=== PATIENT | male | born 1960 | race Asian ===

== ENCOUNTER 2021-10-22 11:24 | Observation (INO) | payer OTHER ==
[2021-10-22 13:48] LABS: BASO % 0.9 % (0-2.0); HEMATOCRIT 26.8 % (35.4-49); HEMOGLOBIN 8.7 GM/dL (11.7-16.9); LYMPH % 14.7 % (8-40); MCH 30.5 pg (25.7-33.7); MCHC 32.6 g/dl (32.0-35.9); MEAN CELL VOLUME 93.7 fl (80-96); MEAN PLT VOLUME 7.4 fl (7.5-11.1); MONO % 14.6 % (3.8-10.2); NEUT % 65.8 % (42.8-82.8); PLATELET COUNT 286 10^3/uL (134-434); RBC 2.86 M/mm3 (4.00-5.60); RDW 14.2 % (11.9-15.9)
[2021-10-22 14:04] LABS: CHLORIDE 100 mmol/L (98-107); SODIUM 137 mmol/L (136-145)
[2021-10-22 14:05] LABS: INR 1.1 (0.83-1.09); PROTHROMBIN TIME (PATIENT) 12.7 SEC (9.7-13.0)
[2021-10-22 14:06] LABS: ANION GAP 9 MMOL/L (8-16); CALCIUM 8.9 mg/dL (8.5-10.1); CO2 28 mmol/L (21-32); GLUCOSE,RANDOM 129 mg/dL (74-106)
[2021-10-22 14:08] LABS: ALBUMIN 2.4 g/dl (3.4-5.0); BLOOD UREA NITROGEN 33.6 mg/dL (7-18); MAGNESIUM 2.8 mg/dL (1.8-2.4)
[2021-10-22 14:10] LABS: SGOT/AST 46 U/L (15-37); SGPT/ALT 13 U/L (13-61)
[2021-10-22 14:11] LABS: ALK PHOS 124 U/L (45-117); BILIRUBIN,TOTAL 0.7 mg/dL (0.2-1); TOT PROT 6.5 g/dl (6.4-8.2)
[2021-10-22 14:17] LABS: CREATININE 8.6 mg/dL (0.55-1.3)
[2021-10-22] MEDS ORDERED: SODIUM CHLORIDE 250 ML IV PRN (16:01)
[2021-10-22 23:59] VITALS: BMI 20.6
[2021-10-23] MEDS: LOSARTAN POTASSIUM 50 MG TABLET PO SCH ×2 (09:04→09:10)
[2021-10-23] MEDS: SEVELAMER CARBONATE 800 MG TAB (FP) PO SCH ×4 (09:04→18:21)
[2021-10-23] MEDS: ASPIRIN COATED 81 MG TABLET.EC PO SCH (09:04)
[2021-10-24] MEDS: SEVELAMER CARBONATE 800 MG TAB (FP) PO SCH ×3 (09:18→18:25)
[2021-10-24] MEDS: ASPIRIN COATED 81 MG TABLET.EC PO SCH (09:19)
[2021-10-24] MEDS: LOSARTAN POTASSIUM 50 MG TABLET PO SCH (09:19)
[2021-10-24] MEDS ORDERED: SODIUM CHLORIDE 250 ML IV PRN (16:34)
[2021-10-24] MEDS: FAMOTIDINE 20 MG TABLET PO SCH (18:25)
[2021-10-24 21:04] LABS: BASO % 1.1 % (0-2.0); EOS % 4.4 % (0-4.5); HEMATOCRIT 29.7 % (35.4-49); HEMOGLOBIN 9.7 GM/dL (11.7-16.9); LYMPH % 19.3 % (8-40); MCH 30.4 pg (25.7-33.7); MCHC 32.7 g/dl (32.0-35.9); MEAN CELL VOLUME 93.1 fl (80-96); MEAN PLT VOLUME 7.3 fl (7.5-11.1); MONO % 11.3 % (3.8-10.2); NEUT % 63.9 % (42.8-82.8); PLATELET COUNT 356 10^3/uL (134-434); RBC 3.19 M/mm3 (4.00-5.60); RDW 14.6 % (11.9-15.9); WHITE BLOOD COUNT 8.4 K/mm3 (4.0-10.0)
[2021-10-24 21:18] LABS: ACTIVATED PTT 33.8 SECONDS (25.2-36.5); INR 1.13 (0.83-1.09)
[2021-10-25] MEDS: ASPIRIN COATED 81 MG TABLET.EC PO SCH (09:38)
[2021-10-25] MEDS: FAMOTIDINE 20 MG TABLET PO SCH (09:38)
[2021-10-25] MEDS: SEVELAMER CARBONATE 800 MG TAB (FP) PO SCH ×3 (09:38→18:15)
[2021-10-25 10:32] LABS: HEMATOCRIT 28.1 % (35.4-49); HEMOGLOBIN 9.1 GM/dL (11.7-16.9); MCH 30.2 pg (25.7-33.7); MCHC 32.5 g/dl (32.0-35.9); MEAN CELL VOLUME 92.9 fl (80-96); MEAN PLT VOLUME 7.4 fl (7.5-11.1); PLATELET COUNT 354 10^3/uL (134-434); RBC 3.02 M/mm3 (4.00-5.60); RDW 14.6 % (11.9-15.9)
[2021-10-25 10:52] LABS: CHLORIDE 97 mmol/L (98-107); SODIUM 137 mmol/L (136-145)
[2021-10-25 10:54] LABS: ALBUMIN 2.5 g/dl (3.4-5.0); ANION GAP 13 MMOL/L (8-16); BLOOD UREA NITROGEN 57.5 mg/dL (7-18); CALCIUM 8.7 mg/dL (8.5-10.1); CO2 27 mmol/L (21-32); GLUCOSE,RANDOM 168 mg/dL (74-106)
[2021-10-25 10:57] LABS: SGOT/AST 6 U/L (15-37); SGPT/ALT 11 U/L (13-61)
[2021-10-25 10:58] LABS: BILIRUBIN,TOTAL 0.5 mg/dL (0.2-1); TOT PROT 6.2 g/dl (6.4-8.2)
[2021-10-25 10:59] LABS: ALK PHOS 128 U/L (45-117)
[2021-10-25 11:10] LABS: CREATININE 10.1 mg/dL (0.55-1.3)
[2021-10-25] MEDS: LOSARTAN POTASSIUM 50 MG TABLET PO SCH (14:52)
[2021-10-26 08:19] LABS: BASO % 1.2 % (0-2.0); EOS % 3.8 % (0-4.5); HEMATOCRIT 26.8 % (35.4-49); HEMOGLOBIN 8.9 GM/dL (11.7-16.9); MCH 30.7 pg (25.7-33.7); MCHC 33.2 g/dl (32.0-35.9); MEAN CELL VOLUME 92.5 fl (80-96); MEAN PLT VOLUME 6.9 fl (7.5-11.1); MONO % 12.6 % (3.8-10.2); NEUT % 69.4 % (42.8-82.8); PLATELET COUNT 286 10^3/uL (134-434); RDW 14.6 % (11.9-15.9); WHITE BLOOD COUNT 5.9 K/mm3 (4.0-10.0)
[2021-10-26] MEDS: SEVELAMER CARBONATE 800 MG TAB (FP) PO SCH ×2 (08:29→12:20)
[2021-10-26 08:42] LABS: CALCIUM 8.2 mg/dL (8.5-10.1)
[2021-10-26 08:43] LABS: MAGNESIUM 1.9 mg/dL (1.8-2.4)
[2021-10-26 08:46] LABS: CREATININE 6.3 mg/dL (0.55-1.3); PHOSPHOROUS 3.2 mg/dL (2.5-4.9)
[2021-10-26 08:55] LABS: BLOOD UREA NITROGEN 28.4 mg/dL (7-18)
[2021-10-26] MEDS: FAMOTIDINE 20 MG TABLET PO SCH (09:55)
[2021-10-26] MEDS: ASPIRIN COATED 81 MG TABLET.EC PO SCH (09:55)
[2021-10-26] MEDS ORDERED: METOCLOPRAMIDE HCL 10 MG TABLET (FP) PO SCH (10:00)
[2021-10-26] MEDS: LOSARTAN POTASSIUM 50 MG TABLET PO SCH (10:05)
[2021-10-26 16:07] VITALS: BP 126/77; PULSE 101; TEMP 98.3
== END 2021-10-26 14:33 | disposition home or self-care (01) ==
LOC: JER 11:24 → UNDOADMOB 14:18 → INTOOBSV 14:18 → JERBED 14:18 → J5S 21:08
PROVIDERS: ADMIT Internal Medicine; ATTEND Internal Medicine
DX: I12.0 Hypertensive chronic kidney disease with stage 5 chronic kidney disease or end stage renal disease (principal); N18.6 End stage renal disease; Z99.2 Dependence on renal dialysis; E78.5 Hyperlipidemia, unspecified; Q61.3 Polycystic kidney, unspecified; I48.91 Unspecified atrial fibrillation; E21.3 Hyperparathyroidism, unspecified
CPT/HCPCS: 36415; 74176-TC; 74178-TC; 76775-TC; 80048; 80053; 82272; 83735; 84100; 85025; 85027; 85610; 85730; 86803; 86850; 86900; 86901; 87340; 99285-25; C9803-CS; G0378; Q9967; U0003; U0005

== ENCOUNTER 2022-02-24 20:49 | Inpatient (IN) | payer OTHER ==
[2022-02-24] MEDS ORDERED: DEXAMETHASONE SOD PHOSPHATE 10 MG/1 ML VIAL IVPUSH ONE (22:26)
[2022-02-24] MEDS ORDERED: DEXAMETHASONE SOD PHOSPHATE 10 MG/1 ML VIAL ONE (22:40)
[2022-02-24 23:04] LABS: INR 1.12 (0.83-1.09); PROTHROMBIN TIME (PATIENT) 12.9 SEC (9.7-13.0)
[2022-02-24 23:13] LABS: HEMATOCRIT 45.2 % (35.4-49); HEMOGLOBIN 14.5 GM/dL (11.7-16.9); MCH 30.1 pg (25.7-33.7); MCHC 32.1 g/dl (32.0-35.9); MEAN CELL VOLUME 93.7 fl (80-96); MEAN PLT VOLUME 8.1 fl (7.5-11.1); PLATELET COUNT 119 10^3/uL (134-434); RBC 4.82 M/mm3 (4.00-5.60); RDW 16.3 % (11.9-15.9); WHITE BLOOD COUNT 4.4 K/mm3 (4.0-10.0)
[2022-02-24 23:36] LABS: CHLORIDE 96 mmol/L (98-107); SODIUM 135 mmol/L (136-145)
[2022-02-24 23:38] LABS: CALCIUM 9.2 mg/dL (8.5-10.1)
[2022-02-24 23:39] LABS: ALBUMIN 3.1 g/dl (3.4-5.0); ANION GAP 12 MMOL/L (8-16); BLOOD UREA NITROGEN 52.1 mg/dL (7-18); CO2 27 mmol/L (21-32); GLUCOSE,RANDOM 112 mg/dL (74-106); MAGNESIUM 2.6 mg/dL (1.8-2.4)
[2022-02-24 23:42] LABS: PHOSPHOROUS 4.3 mg/dL (2.5-4.9); SGOT/AST 34 U/L (15-37); SGPT/ALT 29 U/L (13-61)
[2022-02-24 23:43] LABS: TOT PROT 6.6 g/dl (6.4-8.2)
[2022-02-24 23:44] LABS: BILIRUBIN,TOTAL 0.7 mg/dL (0.2-1)
[2022-02-24 23:45] LABS: ALK PHOS 111 U/L (45-117)
[2022-02-24 23:49] LABS: CREATININE 8.9 mg/dL (0.55-1.3)
[2022-02-24 23:59] LABS: ANISOCYTOSIS 1+; MACROCYTOSIS 0; OVALOCYTE 1+; PLATELET ESTIMATE DECREASED
[2022-02-25] MEDS ORDERED: SEVELAMER CARBONATE 800 MG TAB (FP) PO SCH (06:00)
[2022-02-25 07:01] LABS: BASO % 0.5 % (0-2.0); EOS % 2.2 % (0-4.5); HEMATOCRIT 39.3 % (35.4-49); HEMOGLOBIN 12.7 GM/dL (11.7-16.9); LYMPH % 17.4 % (8-40); MCHC 32.4 g/dl (32.0-35.9); MEAN CELL VOLUME 92.7 fl (80-96); NEUT % 75.9 % (42.8-82.8); PLATELET COUNT 115 10^3/uL (134-434); RBC 4.24 M/mm3 (4.00-5.60); RDW 16.5 % (11.9-15.9)
[2022-02-25] MEDS ORDERED: SODIUM CHLORIDE 250 ML IV PRN (07:11)
[2022-02-25 07:18] LABS: CHLORIDE 97 mmol/L (98-107); SODIUM 133 mmol/L (136-145)
[2022-02-25 07:21] LABS: CALCIUM 8.8 mg/dL (8.5-10.1); CO2 27 mmol/L (21-32)
[2022-02-25 07:28] LABS: ALK PHOS 106 U/L (45-117); ANION GAP 10 MMOL/L (8-16); BILIRUBIN,TOTAL 0.6 mg/dL (0.2-1); BLOOD UREA NITROGEN 63.2 mg/dL (7-18); CREATININE 9.5 mg/dL (0.55-1.3); GLUCOSE,RANDOM 152 mg/dL (74-106); SGOT/AST 14 U/L (15-37); SGPT/ALT 26 U/L (13-61); TOT PROT 6.2 g/dl (6.4-8.2)
[2022-02-25] MEDS: SEVELAMER CARBONATE 800 MG TAB (FP) PO SCH ×3 (09:50→17:29)
[2022-02-25] MEDS: LOSARTAN POTASSIUM 50 MG TABLET PO SCH (10:48)
[2022-02-25] MEDS: predniSONE 20 MG TABLET (UD) PO SCH (21:12)
[2022-02-25] MEDS: TRIAMCINOLONE ACET 0.1% CREAM 15 GM TUBE TP SCH (22:00)
[2022-02-26] MEDS: SEVELAMER CARBONATE 800 MG TAB (FP) PO SCH ×3 (07:47→17:24)
[2022-02-26] MEDS: TRIAMCINOLONE ACET 0.1% CREAM 15 GM TUBE TP SCH ×2 (09:54→21:46)
[2022-02-26] MEDS: predniSONE 20 MG TABLET (UD) PO SCH (09:55)
[2022-02-26] MEDS: LOSARTAN POTASSIUM 50 MG TABLET PO SCH (09:56)
[2022-02-26] MEDS: methylPREDNISolone NA SUCC 40 MG/1 ML VIAL IVPUSH SCH (20:17)
[2022-02-26] MEDS: FAMOTIDINE 10 MG TABLET PO SCH (21:45)
[2022-02-27] MEDS: methylPREDNISolone NA SUCC 40 MG/1 ML VIAL IVPUSH SCH ×3 (01:36→17:47)
[2022-02-27] MEDS: SEVELAMER CARBONATE 800 MG TAB (FP) PO SCH ×3 (08:38→17:47)
[2022-02-27] MEDS: LOSARTAN POTASSIUM 50 MG TABLET PO SCH (10:10)
[2022-02-27] MEDS: TRIAMCINOLONE ACET 0.1% CREAM 15 GM TUBE TP SCH ×2 (10:11→21:41)
[2022-02-27] MEDS: FAMOTIDINE 10 MG TABLET PO SCH (10:11)
[2022-02-27 10:12] LABS: BASO % 0.4 % (0-2.0); EOS % 0.4 % (0-4.5); HEMATOCRIT 38.4 % (35.4-49); HEMOGLOBIN 12.4 GM/dL (11.7-16.9); LYMPH % 31.3 % (8-40); MCH 30.2 pg (25.7-33.7); MCHC 32.4 g/dl (32.0-35.9); MEAN PLT VOLUME 8.4 fl (7.5-11.1); MONO % 2.6 % (3.8-10.2); NEUT % 65.3 % (42.8-82.8); PLATELET COUNT 154 10^3/uL (134-434); RBC 4.12 M/mm3 (4.00-5.60); RDW 16.1 % (11.9-15.9); WHITE BLOOD COUNT 6.3 K/mm3 (4.0-10.0)
[2022-02-27 10:27] LABS: CHLORIDE 94 mmol/L (98-107); SODIUM 133 mmol/L (136-145)
[2022-02-27 10:32] LABS: ANION GAP 15 MMOL/L (8-16); CALCIUM 9.2 mg/dL (8.5-10.1); CO2 25 mmol/L (21-32); GLUCOSE,RANDOM 194 mg/dL (74-106)
[2022-02-27 10:35] LABS: SGOT/AST 12 U/L (15-37); SGPT/ALT 18 U/L (13-61)
[2022-02-27 10:37] LABS: BILIRUBIN,TOTAL 0.5 mg/dL (0.2-1); TOT PROT 6.2 g/dl (6.4-8.2)
[2022-02-27 10:38] LABS: ALK PHOS 98 U/L (45-117); BLOOD UREA NITROGEN 90.4 mg/dL (7-18); CREATININE 8.7 mg/dL (0.55-1.3)
[2022-02-27] MEDS ORDERED: SODIUM CHLORIDE 250 ML IV PRN (11:06)
[2022-02-28] MEDS: methylPREDNISolone NA SUCC 40 MG/1 ML VIAL IVPUSH SCH ×3 (01:36→17:43)
[2022-02-28] MEDS: SEVELAMER CARBONATE 800 MG TAB (FP) PO SCH ×3 (08:23→17:43)
[2022-02-28 08:57] LABS: HEMATOCRIT 37.1 % (35.4-49); HEMOGLOBIN 12.3 GM/dL (11.7-16.9); MCH 30.4 pg (25.7-33.7); MCHC 33.2 g/dl (32.0-35.9); MEAN CELL VOLUME 91.6 fl (80-96); MEAN PLT VOLUME 8.5 fl (7.5-11.1); PLATELET COUNT 165 10^3/uL (134-434); RBC 4.05 M/mm3 (4.00-5.60); RDW 16.5 % (11.9-15.9); WHITE BLOOD COUNT 7.3 K/mm3 (4.0-10.0)
[2022-02-28 09:17] LABS: CHLORIDE 92 mmol/L (98-107); SODIUM 129 mmol/L (136-145)
[2022-02-28 09:21] LABS: ALBUMIN 2.8 g/dl (3.4-5.0); ANION GAP 14 MMOL/L (8-16); CALCIUM 9.2 mg/dL (8.5-10.1); CO2 23 mmol/L (21-32); GLUCOSE,RANDOM 114 mg/dL (74-106)
[2022-02-28 09:24] LABS: SGOT/AST 32 U/L (15-37); SGPT/ALT 33 U/L (13-61)
[2022-02-28 09:26] LABS: BILIRUBIN,TOTAL 0.5 mg/dL (0.2-1); TOT PROT 5.8 g/dl (6.4-8.2)
[2022-02-28 09:27] LABS: ALK PHOS 99 U/L (45-117)
[2022-02-28 09:28] LABS: BLOOD UREA NITROGEN 120.2 mg/dL (7-18); CREATININE 9.9 mg/dL (0.55-1.3)
[2022-02-28] MEDS: FAMOTIDINE 10 MG TABLET PO SCH (11:11)
[2022-02-28] MEDS: LOSARTAN POTASSIUM 50 MG TABLET PO SCH (11:11)
[2022-02-28] MEDS: TRIAMCINOLONE ACET 0.1% CREAM 15 GM TUBE TP SCH ×2 (12:34→21:24)
[2022-03-01] MEDS: methylPREDNISolone NA SUCC 40 MG/1 ML VIAL IVPUSH SCH ×2 (01:16→09:01)
[2022-03-01 06:47] VITALS: BP 118/56; PULSE 73; RESP 17; TEMP 97.9
[2022-03-01] MEDS: SEVELAMER CARBONATE 800 MG TAB (FP) PO SCH ×2 (08:30→11:26)
[2022-03-01] MEDS: LOSARTAN POTASSIUM 50 MG TABLET PO SCH (09:01)
[2022-03-01] MEDS: FAMOTIDINE 10 MG TABLET PO SCH (09:03)
[2022-03-01] MEDS: TRIAMCINOLONE ACET 0.1% CREAM 15 GM TUBE TP SCH (09:04)
[2022-03-01 11:35] VITALS: BMI 20.2
== END 2022-03-01 14:42 | disposition home or self-care (01) | DRG 385 ==
LOC: JERFT 20:49 → JER 20:49 → JERBED 23:56 → J4S 02-25 02:56
PROVIDERS: ADMIT Internal Medicine; ATTEND Internal Medicine
PROC: 5A1D70Z Performance of Urinary Filtration, Intermittent, Less than 6 Hours Per Day (ICD-10-PCS; principal; 2022-02-25)
PROC: 5A1D70Z Performance of Urinary Filtration, Intermittent, Less than 6 Hours Per Day (ICD-10-PCS; 2022-02-28)
DX: L27.0 Generalized skin eruption due to drugs and medicaments taken internally (principal); D69.6 Thrombocytopenia, unspecified; E87.5 Hyperkalemia; I48.91 Unspecified atrial fibrillation; T36.8X5A Adverse effect of other systemic antibiotics, initial encounter; N28.1 Cyst of kidney, acquired; E21.3 Hyperparathyroidism, unspecified; D63.1 Anemia in chronic kidney disease; I12.0 Hypertensive chronic kidney disease with stage 5 chronic kidney disease or end stage renal disease; N18.6 End stage renal disease; Z99.2 Dependence on renal dialysis
CPT/HCPCS: 36415; 80053; 83010; 83615; 83735; 84100; 84132; 85025; 85027; 85384; 85397; 85610; 85730; 86803; 87340; 88300-TC; 93005; 93010; 99285-25; C9803-CS; J1100; U0003; U0005

== ENCOUNTER 2022-08-03 12:54 | Observation (INO) | payer OTHER ==
[2022-08-03] MEDS ORDERED: SODIUM CHLORIDE 0.9% 500 ML INFUS.BAG IV ONE (14:12)
[2022-08-03 14:35] LABS: VENOUS BASE EXCESS -0.1 mmol/L (-2-2); VENOUS O2 SATURATION 96.2 % (70-80); VENOUS PCO2 43.1 mmHg (38-52); VENOUS PH 7.384 (7.310-7.410)
[2022-08-03 14:37] LABS: BASO % 0.7 % (0-2.0); EOS % 6.2 % (0-4.5); HEMATOCRIT 37.7 % (35.4-49); HEMOGLOBIN 12.4 GM/dL (11.7-16.9); LYMPH % 36.8 % (8-40); MCH 32.1 pg (25.7-33.7); MCHC 32.8 g/dl (32.0-35.9); MEAN CELL VOLUME 97.8 fl (80-96); MEAN PLT VOLUME 7.5 fl (7.5-11.1); MONO % 11.9 % (3.8-10.2); NEUT % 44.4 % (42.8-82.8); PLATELET COUNT 140 10^3/uL (134-434); RBC 3.85 M/mm3 (4.00-5.60); RDW 14.5 % (11.9-15.9); WHITE BLOOD COUNT 5.1 K/mm3 (4.0-10.0)
[2022-08-03 14:43] LABS: INR 0.89 (0.83-1.09); PROTHROMBIN TIME (PATIENT) 10.2 SEC (9.7-13.0)
[2022-08-03 14:56] LABS: CHLORIDE 98 mmol/L (98-107); MAGNESIUM 2.9 mg/dL (1.8-2.4); SODIUM 133 mmol/L (136-145)
[2022-08-03 14:58] LABS: CALCIUM 8.8 mg/dL (8.5-10.1); CO2 25 mmol/L (21-32); GLUCOSE,RANDOM 92 mg/dL (74-106)
[2022-08-03 14:59] LABS: ALBUMIN 3.6 g/dl (3.4-5.0)
[2022-08-03 15:01] LABS: SGPT/ALT 20 U/L (13-61)
[2022-08-03 15:02] LABS: SGOT/AST 13 U/L (15-37)
[2022-08-03 15:03] LABS: BILIRUBIN,TOTAL 0.5 mg/dL (0.2-1); TOT PROT 6.9 g/dl (6.4-8.2)
[2022-08-03 15:04] LABS: ALK PHOS 116 U/L (45-117)
[2022-08-03 15:13] LABS: ANION GAP 11 MMOL/L (8-16); CREATININE 11.8 mg/dL (0.55-1.3); N-TERMINAL BNP > 35000.0 pg/ml (5-125)
[2022-08-03] MEDS ORDERED: METOPROLOL TARTRATE 5 MG/5 ML VIAL IVPUSH ONE (15:31)
[2022-08-03] MEDS ORDERED: SODIUM ZIRCONIUM CYCLOSILICATE (LOKELMA) 5 GM PACKET ONE (15:50)
[2022-08-03] MEDS ORDERED: METOPROLOL TARTRATE 5 MG/5 ML VIAL ONE (15:51)
[2022-08-03] MEDS ORDERED: SODIUM ZIRCONIUM CYCLOSILICATE (LOKELMA) 5 GM PACKET PO ONE (16:18)
[2022-08-03] MEDS ORDERED: metoPROLOL SUCCINATE 25 MG TAB.SR.24H (FP) PO ONE (17:15)
[2022-08-03] MEDS ORDERED: SODIUM CHLORIDE 250 ML IV PRN (17:22)
[2022-08-03 23:10] VITALS: BMI 22.4
[2022-08-04] MEDS ORDERED: HEPARIN NA (PORCINE) 5,000 UNITS/ML 1ML VIAL SQ SCH (10:00)
[2022-08-04 12:49] LABS: BASO % 0.9 % (0-2.0); EOS % 5.9 % (0-4.5); HEMATOCRIT 37.3 % (35.4-49); HEMOGLOBIN 12.3 GM/dL (11.7-16.9); LYMPH % 29.9 % (8-40); MCH 32.7 pg (25.7-33.7); MCHC 33.1 g/dl (32.0-35.9); MEAN CELL VOLUME 98.9 fl (80-96); MONO % 11.4 % (3.8-10.2); NEUT % 51.9 % (42.8-82.8); PLATELET COUNT 131 10^3/uL (134-434); RBC 3.77 M/mm3 (4.00-5.60); RDW 14.4 % (11.9-15.9); WHITE BLOOD COUNT 4.7 K/mm3 (4.0-10.0)
[2022-08-04 13:21] LABS: CALCIUM 8.9 mg/dL (8.5-10.1)
[2022-08-04 13:22] LABS: ALBUMIN 3.7 g/dl (3.4-5.0)
[2022-08-04 13:25] LABS: CREATININE 7.2 mg/dL (0.55-1.3)
[2022-08-04 13:26] LABS: TOT PROT 7.1 g/dl (6.4-8.2)
[2022-08-04 13:27] LABS: BILIRUBIN,TOTAL 0.5 mg/dL (0.2-1)
[2022-08-04 13:29] LABS: BLOOD UREA NITROGEN 34.3 mg/dL (7-18)
[2022-08-04] MEDS ORDERED: SEVELAMER CARBONATE 800 MG TAB (FP) PO SCH (14:00)
[2022-08-04 14:52] VITALS: RESP 18
[2022-08-04] MEDS ORDERED: SODIUM ZIRCONIUM CYCLOSILICATE (LOKELMA) 5 GM PACKET PO ONE (15:31)
[2022-08-04 18:00] VITALS: BP 133/64; PULSE 75; TEMP 97.9
== END 2022-08-04 18:31 | disposition home or self-care (01) ==
LOC: JER 12:54 → UNDOADMOB 15:32 → JERBED 15:32 → INTOOBSV 15:32 → JERBED 19:30 → J4W 19:30 → JERBED 08-04 11:47
PROVIDERS: ADMIT Internal Medicine; ATTEND Internal Medicine
PROC: 3E033GC Introduction of Other Therapeutic Substance into Peripheral Vein, Percutaneous Approach (ICD-10-PCS; principal; 2022-08-04)
PROC: 3E0337Z Introduction of Electrolytic and Water Balance Substance into Peripheral Vein, Percutaneous Approach (ICD-10-PCS; 2022-08-04)
DX: I48.0 Paroxysmal atrial fibrillation (principal); E78.5 Hyperlipidemia, unspecified; I13.11 Hypertensive heart and chronic kidney disease without heart failure, with stage 5 chronic kidney disease, or end stage renal disease; N18.6 End stage renal disease; Z99.2 Dependence on renal dialysis; Z88.8 Allergy status to other drugs, medicaments and biological substances; R00.0 Tachycardia, unspecified
CPT/HCPCS: 0241U-QW; 36415; 71045-TC-FY; 80053; 82803; 83605; 83735; 83880; 84443; 84484; 85025; 85610; 85730; 86803; 86850; 86900; 86901; 87040; 87340; 93005; 93010; 93306-TC; 96361; 96374; 99285-25; G0378

== ENCOUNTER 2022-08-21 19:44 | Inpatient (IN) | payer OTHER ==
[2022-08-21 20:42] LABS: BASO % 0.8 % (0-2.0); EOS % 6.7 % (0-4.5); HEMATOCRIT 35.2 % (35.4-49); HEMOGLOBIN 11.9 GM/dL (11.7-16.9); LYMPH % 22.7 % (8-40); MCH 33.2 pg (25.7-33.7); MCHC 33.7 g/dl (32.0-35.9); MEAN CELL VOLUME 98.5 fl (80-96); MONO % 9.7 % (3.8-10.2); NEUT % 60.1 % (42.8-82.8); PLATELET COUNT 126 10^3/uL (134-434); RBC 3.57 M/mm3 (4.00-5.60); RDW 14.6 % (11.9-15.9); WHITE BLOOD COUNT 6.3 K/mm3 (4.0-10.0)
[2022-08-21 20:50] LABS: INR 0.9 (0.83-1.09); PROTHROMBIN TIME (PATIENT) 10.4 SEC (9.7-13.0)
[2022-08-21 20:53] LABS: ACTIVATED PTT 33.9 SECONDS (25.2-36.5)
[2022-08-21 21:00] LABS: CHLORIDE 98 mmol/L (98-107); SODIUM 138 mmol/L (136-145)
[2022-08-21 21:02] LABS: CALCIUM 8.8 mg/dL (8.5-10.1)
[2022-08-21 21:03] LABS: ALBUMIN 3.7 g/dl (3.4-5.0); ANION GAP 15 MMOL/L (8-16); CO2 24 mmol/L (21-32); GLUCOSE,RANDOM 112 mg/dL (74-106); LIPASE 867 U/L (73-393)
[2022-08-21 21:05] LABS: PHOSPHOROUS 5.6 mg/dL (2.5-4.9); SGOT/AST 13 U/L (15-37)
[2022-08-21 21:06] LABS: SGPT/ALT 17 U/L (13-61)
[2022-08-21 21:07] LABS: BILIRUBIN,TOTAL 0.4 mg/dL (0.2-1); TOT PROT 6.9 g/dl (6.4-8.2)
[2022-08-21 21:08] LABS: ALK PHOS 119 U/L (45-117)
[2022-08-21 21:12] LABS: BLOOD UREA NITROGEN 109.6 mg/dL (7-18); CREATININE 11.9 mg/dL (0.55-1.3)
[2022-08-21] MEDS ORDERED: ACETAMINOPHEN 1000 MG/100 ML BAG IVPB ONE (22:01)
[2022-08-21] MEDS ORDERED: ACETAMINOPHEN INJECTION 100 ML IVPB ONE (22:03)
[2022-08-22 08:44] LABS: BASO % 0.7 % (0-2.0); EOS % 1.9 % (0-4.5); HEMATOCRIT 34.4 % (35.4-49); HEMOGLOBIN 11.5 GM/dL (11.7-16.9); LYMPH % 23.6 % (8-40); MCH 32.9 pg (25.7-33.7); MCHC 33.4 g/dl (32.0-35.9); MEAN CELL VOLUME 98.3 fl (80-96); MEAN PLT VOLUME 7.6 fl (7.5-11.1); MONO % 10.7 % (3.8-10.2); NEUT % 63.1 % (42.8-82.8); PLATELET COUNT 125 10^3/uL (134-434); RDW 14.5 % (11.9-15.9); WHITE BLOOD COUNT 6.2 K/mm3 (4.0-10.0)
[2022-08-22] MEDS ORDERED: SODIUM CHLORIDE 250 ML IV PRN (08:55)
[2022-08-22 09:00] LABS: CHLORIDE 97 mmol/L (98-107); SODIUM 134 mmol/L (136-145)
[2022-08-22 09:02] LABS: ALBUMIN 3.5 g/dl (3.4-5.0); ANION GAP 15 MMOL/L (8-16); CALCIUM 8.5 mg/dL (8.5-10.1); CO2 22 mmol/L (21-32); GLUCOSE,RANDOM 104 mg/dL (74-106)
[2022-08-22 09:05] LABS: SGOT/AST 11 U/L (15-37)
[2022-08-22 09:06] LABS: SGPT/ALT 16 U/L (13-61)
[2022-08-22 09:07] LABS: BILIRUBIN,TOTAL 0.7 mg/dL (0.2-1); TOT PROT 6.5 g/dl (6.4-8.2)
[2022-08-22 09:08] LABS: ALK PHOS 100 U/L (45-117)
[2022-08-22 09:09] LABS: CREATININE 12.5 mg/dL (0.55-1.3)
[2022-08-22] MEDS: SEVELAMER CARBONATE 800 MG TAB (FP) PO SCH ×3 (09:12→18:14)
[2022-08-22] MEDS ORDERED: ASPIRIN COATED 81 MG TABLET.EC ONE (10:53)
[2022-08-22] MEDS ORDERED: PANTOPRAZOLE 40 MG TABLET PO ONE (10:53)
[2022-08-22] MEDS: ASPIRIN COATED 81 MG TABLET.EC PO SCH (10:59)
[2022-08-22] MEDS: HEPARIN NA (PORCINE) 5,000 UNITS/ML 1ML VIAL SQ SCH ×2 (10:59→23:06)
[2022-08-22] MEDS: PANTOPRAZOLE 40 MG TABLET PO SCH (10:59)
[2022-08-23 03:16] VITALS: BMI 21.9
[2022-08-23 07:32] LABS: BASO % 0.7 % (0-2.0); EOS % 3.7 % (0-4.5); HEMATOCRIT 37.3 % (35.4-49); HEMOGLOBIN 12.5 GM/dL (11.7-16.9); LYMPH % 22.1 % (8-40); MCH 33.1 pg (25.7-33.7); MCHC 33.6 g/dl (32.0-35.9); MEAN CELL VOLUME 98.5 fl (80-96); MEAN PLT VOLUME 7.7 fl (7.5-11.1); MONO % 12.8 % (3.8-10.2); NEUT % 60.7 % (42.8-82.8); PLATELET COUNT 142 10^3/uL (134-434); RBC 3.79 M/mm3 (4.00-5.60); RDW 14.4 % (11.9-15.9); WHITE BLOOD COUNT 5.2 K/mm3 (4.0-10.0)
[2022-08-23 07:42] LABS: CHLORIDE 98 mmol/L (98-107); SODIUM 138 mmol/L (136-145)
[2022-08-23 07:54] LABS: CALCIUM 8.9 mg/dL (8.5-10.1)
[2022-08-23 07:55] LABS: ALBUMIN 3.4 g/dl (3.4-5.0); ANION GAP 8 MMOL/L (8-16); CO2 31 mmol/L (21-32); GLUCOSE,RANDOM 107 mg/dL (74-106)
[2022-08-23 07:57] LABS: SGPT/ALT 17 U/L (13-61)
[2022-08-23 07:58] LABS: SGOT/AST 10 U/L (15-37)
[2022-08-23 07:59] LABS: BILIRUBIN,TOTAL 0.6 mg/dL (0.2-1); TOT PROT 6.8 g/dl (6.4-8.2)
[2022-08-23 08:01] LABS: ALK PHOS 98 U/L (45-117)
[2022-08-23 08:09] LABS: CREATININE 8.5 mg/dL (0.55-1.3)
[2022-08-23] MEDS: SEVELAMER CARBONATE 800 MG TAB (FP) PO SCH ×3 (08:27→17:08)
[2022-08-23] MEDS: HEPARIN NA (PORCINE) 5,000 UNITS/ML 1ML VIAL SQ SCH (09:33)
[2022-08-23] MEDS: PANTOPRAZOLE 40 MG TABLET PO SCH (09:33)
[2022-08-23] MEDS: ASPIRIN COATED 81 MG TABLET.EC PO SCH (09:35)
[2022-08-23] MEDS ORDERED: REGADENOSON 0.4 MG/5 ML PRE-FILLED SYRINGE IVPUSH ONE ×2 (10:45→12:42)
[2022-08-23 15:30] VITALS: RESP 18
[2022-08-23 18:05] VITALS: BP 123/65; PULSE 83; TEMP 97.6
== END 2022-08-23 18:05 | disposition home or self-care (01) | DRG 203 ==
LOC: JER 19:44 → JERBED 08-22 01:25 → OBSVTOIN 08-22 02:15 → J4W 08-23 01:24
PROVIDERS: ADMIT Internal Medicine; ATTEND Internal Medicine
PROC: 5A1D70Z Performance of Urinary Filtration, Intermittent, Less than 6 Hours Per Day (ICD-10-PCS; principal; 2022-08-22)
DX: R07.9 Chest pain, unspecified (principal); N18.6 End stage renal disease; I12.0 Hypertensive chronic kidney disease with stage 5 chronic kidney disease or end stage renal disease; D63.1 Anemia in chronic kidney disease; I48.91 Unspecified atrial fibrillation; N25.0 Renal osteodystrophy; Z99.2 Dependence on renal dialysis
CPT/HCPCS: 0241U-QW; 36415; 71045-TC-FY; 71275-TC; 78452-TC; 80053; 83690; 83735; 83880; 84100; 84484; 85025; 85610; 85730; 93005; 93010; 93017; 99285-25; A9502; G0378; J1644; J2785; Q9967